=== PATIENT | male | born 1970 | race Caucasian/White ===

== ENCOUNTER 2018-01-14 13:43 | Emergency (ER) | payer OTHER, MEDICARE ==
[2018-01-14] MEDS: LORAZEPAM 1 MG TAB PO (14:12)
== END 2018-01-14 14:10 | disposition home or self-care (01) ==
LOC: E/R 13:43
DX: F41.9 Anxiety disorder, unspecified (principal); F17.210 Nicotine dependence, cigarettes, uncomplicated
CPT/HCPCS: 99282; Z7502